=== PATIENT | male | born 2000 | race Caucasian/White ===

== ENCOUNTER → 2023-02-08 | Outpatient (CLI) | payer BC, OTHER ==
--- NOTE | 2023-02-08 15:16 | US ---
EXAMINATION TYPE: US scrotum with doppler. Grayscale and color Doppler Duplex imaging performed of michael solis scrotum. DATE OF EXAM: 02/08/2023 COMPARISON: NONE CLINICAL INDICATION: Male, 22 years old with history of N50.89 OTHER SPECIFIED DISORDERS OF THE MALE GEN; Patient states feeling a lump posterior right teste x 2 days, about the size of a grain of rice. No injury. EXAM MEASUREMENTS: TESTICLES: Right Testicle: 4.4 x 3.4 x 2.6 cm Left Testicle: 4.6 x 3.9 x 2.8 cm EPIDIDYMIS HEAD: Right Epididymis: 1.0 x 0.9 x 0.9 cm Left Epididymis: 0.7 x 1.3 x 1.1 cm Doppler performed to assess for testicular vascularity; good bilateral color flow and waveforms are s een. There is no evidence of testicular torsion. Presence of hydroceles: small right Presence of varicoceles: no Area of concern scanned. Right epididymal body visualized by area of concern. IMPRESSION: Small right-sided hydrocele. No evidence for intra or extratesticular mass.
== END | disposition home or self-care (01) ==
LOC: RADUSWWP 13:11
PROVIDERS: ATTEND Family Medicine
DX: N50.89 Other specified disorders of the male genital organs (principal); N43.3 Hydrocele, unspecified
CPT/HCPCS: 76870; 93975

== ENCOUNTER → 2023-03-08 | Outpatient (CLI) | payer BC, OTHER ==
--- NOTE | 2023-03-08 19:44 | US ---
EXAMINATION TYPE: US st tissue head/neck DATE OF EXAM: 03/08/2023 COMPARISON: NONE CLINICAL INDICATION: Male, 22 years old with history of R59.0 ENLARGED LYMPH NODES; recent sinus infe ctions and patient noticed palpable areas along right and left neck. He said they were smaller when o n antibiotics but not currently on medication. TECHNIQUE: Bilateral neck scan at palpables FINDINGS: Onsite Health Coach notes: Right neck soft tissue scan produces 2 lymph nodes are areas of palpabl es. Largest = 2.1 x 2.0 x 0.9cm, second node = 1.6 x 1.6 x 0.9cm Left neck soft tissue scan at palpable produces a 2.5 x 1.8 x 1.2cm lymph node IMPRESSION: Mildly lymph nodes on both sides of the neck, right more so than the left. These are probably reactiv e/post inflammatory and can be followed clinically. If any progressive growth is noted, the area coul d be rescanned and tissue sampling can be considered.
== END | disposition home or self-care (01) ==
LOC: RADUSWWP 15:12
PROVIDERS: ATTEND Family Medicine
DX: R59.0 Localized enlarged lymph nodes (principal)
CPT/HCPCS: 76536

== ENCOUNTER → 2023-06-01 | Outpatient (CLI) | payer BC ==
--- NOTE | 2023-06-01 21:15 | CT ---
EXAMINATION TYPE: CT soft tissue neck w con CT DLP: 1810.3 mGycm, Automated exposure control for dose reduction was used. DATE OF EXAM: 06/01/2023 7:06 PM COMPARISON: 05/23/2023. And ultrasound from 03/08/2023. CLINICAL INDICATION:Male, 22 years old with history of R59.0 LOCALIZED ENLARGED LYMPH NODES; PHH, Enl arged lymph nodes TECHNIQUE: Standard enhanced CT of the neck. Axial sections with coronal and sagittal reformats were obtained. Contrast used:100 cc mL of Isovue 300 without and with IV Contrast, Oral contrast used: none. FINDINGS: Brain: Visualized portions are grossly unremarkable. Orbits: Unremarkable Sinuses: Grossly unremarkable. Spaces of the neck: Clear and symmetric. Musculoskeletal: No acute osseous pathology. Lymph nodes: There are thickened lymph nodes in the supraclavicular regions bilaterally measuring up to 13 mm on the right and 11 mm on the left. No enlarged lymph nodes are seen within the knees diaphr agm. Lymph nodes on the right correlate with palpable marker. Vascular structures: Visualized major arteries are patent without evidence of aneurysm. Thoracic Inlet/airway: Airway is patent. The lung apices are clear. Soft tissues/Thyroid: Thyroid and remainder of the soft tissues are unremarkable. Other: none. IMPRESSION Enlarged supraclavicular lymph nodes bilaterally. On the right is correlate with palpable marker. Fin dings may be reactive with underlying lymphoma not entirely excluded. Clinical correlation and short- term follow-up CT should be considered in 3 months given less variability in measuring with CT marilyn nelson
== END | disposition home or self-care (01) ==
LOC: RADCTMAIN 18:34
PROVIDERS: ATTEND Family Medicine
DX: R59.0 Localized enlarged lymph nodes (principal)
CPT/HCPCS: 70491; Q9967

== ENCOUNTER → 2023-09-07 | Outpatient (CLI) | payer BC ==
--- NOTE | 2023-09-09 11:24 | CT ---
EXAMINATION TYPE: CT soft tissue neck wo/w con DATE OF EXAM: 09/07/2023 COMPARISON: 06/01/2023 HISTORY: Follow up for enlarged lymph nodes. CT DLP: 1556 mGycm CONTRAST: Patient injected with 100ml mL of Isovue 300. TECHNIQUE: Axial images at 3 mm thick sections. Reconstructed images in the coronal plane and sagitt al plane are reviewed. FINDINGS: Limited CT sections are obtained the lung apices. The lung apices appear clear. CT neck: The torus tubarius and fossa of Rosenmuller are normal. Window/Distribution Clerk spaces are normal. Para nasal sinuses and mastoid air cells are clear. Parotid glands appear normal and symmetrical. Submandibular glands, are normal. Parapharyngeal spac es are normal. Multiple shotty lymph nodes are present in the parapharyngeal spaces and posterior ne ck triangle and right submandibular and submental regions. There is a 1.0 cm lymph node in the right posterior triangle No suspicious supraclavicular adenopathy is evident. There is a 0.9 cm lymph node in the right lower neck and a 1.0 cm lymph node in the left lower neck. Image 58, series 3. No additi onal enlarged adenopathy is evident. Submandibular gland is prominent. The hypopharynx appears within normal limits. Vocal cord level appear symmetrical. Thyroid as visualized is normal. Osseous structures are unremarkable IMPRESSION: 1. Scattered bilateral shotty lymphadenopathy. 2. Couple of enlarged nodes including a 1 cm right posterior triangle 1.0 cm lymph node lower anterio r left neck. 3. Lymphadenopathy size has diminished over the interval.
== END | disposition home or self-care (01) ==
LOC: RADCTMAIN 17:01
PROVIDERS: ATTEND Family Medicine
DX: R59.0 Localized enlarged lymph nodes (principal)
CPT/HCPCS: 70492; Q9967